=== PATIENT | female | born 1990 | race Caucasian/White ===

== ENCOUNTER 2021-02-05 23:43 | Emergency (ER) | payer OTHER ==
[~2021-02-05] VITALS: Ht 170.2 cm; Wt 70.3 kg
--- NOTE | 2021-02-05 23:55 | NUR ---
Dr. Jacob at bedside for MSE.
[2021-02-06] MEDS ORDERED: methylPREDNISolone SOD SUCC 125 MG/2 ML VIAL IV ONE
[2021-02-06] MEDS ORDERED: diphenhydrAMINE 50 MG/1 ML VIAL IV ONE
[2021-02-06] MEDS ORDERED: FAMOTIDINE. 20 MG/2 ML VIAL IV ONE ×2 (00:10)
[2021-02-06] MEDS ORDERED: diphenhydrAMINE 50 MG/1 ML VIAL ONE (00:10)
[2021-02-06] MEDS ORDERED: methylPREDNISolone SOD SUCC 125 MG/2 ML VIAL ONE (00:11)
[2021-02-06] MEDS ORDERED: PRED50TA PO (00:55)
[2021-02-06] MEDS ORDERED: DIPH25CA83 PO (00:55)
[2021-02-06] MEDS ORDERED: FAMO40TA71 PO (00:55)
[2021-02-06] MEDS ORDERED: EPIN0.3A4 IM (01:10)
--- NOTE | 2021-02-06 01:23 | NUR ---
Swelling has notably decreased, urticaria/hives have diminished as well. No s/sx of any respiratory compromise. Will continue to monitor for any rebound effects.
--- NOTE | 2021-02-06 02:19 | NUR ---
Patient discharged to home in stable condition. Written and verbal after care instructions given. Patient verbalizes understanding of instructions. Stressed follow up or return to ER for worsening s/s. Patient ambulated with steady gait. Patient instructed to follow up with PMD and maybe get a referral to an slurry control tender.
[2021-02-06 02:22] VITALS: BP 114/69
== END 2021-02-06 02:23 | disposition home or self-care (01) ==
LOC: ER 23:52
DX: T78.1XXA Other adverse food reactions, not elsewhere classified, initial encounter (principal); T78.3XXA Angioneurotic edema, initial encounter; X58.XXXA Exposure to other specified factors, initial encounter; J45.909 Unspecified asthma, uncomplicated
CPT/HCPCS: 96374; 96375; 99284; J1200; J2930; J3490

== ENCOUNTER 2022-01-22 18:31 | Emergency (ER) | payer OTHER ==
[~2022-01-22] VITALS: Ht 172.7 cm; Wt 70.3 kg
[~2022-01-22 18:31] MED LIST: DIPH25CA83 PO; EPIN0.3A4 IM; FAMO40TA71 PO; PRED50TA PO
--- NOTE | 2022-01-22 19:11 | NUR ---
DR MUELLER AT BEDSIDE FOR EVAL.
--- NOTE | 2022-01-22 19:12 | NUR ---
Dr Harrison speaking with the patient
[2022-01-22] MEDS ORDERED: DIPH25CA83 PO (19:20)
[2022-01-22] MEDS ORDERED: PRED20TA PO (19:20)
[2022-01-22] MEDS ORDERED: FAMO40TA71 PO (19:20)
--- NOTE | 2022-01-22 19:34 | NUR ---
Patient discharged to home in stable condition. Written and verbal after care instructions given. Patient verbalizes understanding of instructions. Stressed follow up or return to ER for worsening s/s. Patient is A/O x4, no CP, SOB, and no distress noted.
[2022-01-22 19:35] VITALS: BP 111/67
== END 2022-01-22 19:37 | disposition home or self-care (01) ==
LOC: ER 18:33
DX: T78.2XXA Anaphylactic shock, unspecified, initial encounter (principal); J45.909 Unspecified asthma, uncomplicated; Z88.8 Allergy status to other drugs, medicaments and biological substances
CPT/HCPCS: A4663